=== PATIENT | female | born 1995 | race Hispanic/Latino ===

== ENCOUNTER 2018-09-02 16:48 | Outpatient (CLI) | payer OTHER ==
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
--- NOTE | 2018-09-02 19:16 | RAD ---
2 VIEWS LUMBAR SPINE: Date: 09/02/18 HISTORY: Pain. FINDINGS: Six lumbar-type vertebral bodies. Vertebral body height is maintained. Disc space heights are preserv ed. No spondylolisthesis or spondylolysis. IMPRESSION: Unremarkable lumbar spine 2 views. POS: JIM
== END 2018-09-02 16:49 | disposition home or self-care (01) ==
LOC: SCSRAD 16:48
PROVIDERS: ATTEND Family Medicine
DX: M54.5 Low back pain (principal)
CPT/HCPCS: 72052; 72100